=== PATIENT | male | born 1955 | race Caucasian/White ===

== ENCOUNTER 2022-02-23 11:05 | Outpatient (CLI) | payer MEDICARE, OTHER | END 2022-02-23 11:06 | disposition home or self-care (01) | LOC: MADEKG 11:05 | PROVIDERS: ATTEND Internal Medicine | DX: I10 Essential (primary) hypertension (principal) | CPT/HCPCS: 93005; 93010 ==

== ENCOUNTER 2024-12-11 09:25 | Emergency (ER) | payer MEDICARE, OTHER ==
[2024-12-11] MEDS ORDERED: Acetaminophen 500 MG TAB ONE (09:48)
[2024-12-11 10:14] LABS: #Basophils 0.1 thou/uL (0.0-0.2); #Eosinophils 0.2 thou/uL (0.0-0.7); #Lymphocytes 1.9 thou/uL (1.20-3.40); #Monocytes 0.7 thou/uL (0.11-0.59); #Neutrophils 4.6 thou/uL (1.40-6.50); %Basophils 1.7 % (0.0-1.0); %Eosinophils 2.6 % (0.0-10.0); %Lymphocytes 25.0 % (21.0-51.0); %Monocytes 9.5 % (0.0-10.0); %Neutrophils 61.1 % (42.0-75.0); Hematocrit 43.6 % (42.0-52.0); Hemoglobin 13.9 g/dL (14.0-18.0); Mean Corpuscular Hemoglobin 27.3 pg (27.0-31.0); Mean Corpuscular Volume 85.6 fl (78.0-98.0); Platelet Count 243 10x3/uL (130-400); Red Blood Cell (RBC) Count 5.09 mill/uL (4.70-6.10); White Blood Cell (WBC) Count 7.4 10x3/uL (4.8-10.8)
[2024-12-11 10:22] LABS: Glucose, Urine (Dipstick) Negative (Negative); Leukocyte Negative (Negative); Protein, Urine (Dipstick) Trace mg/dL (Neg-Trace); Specific Gravity, Urine 1.020 (1.005-1.030)
[2024-12-11 10:27] LABS: ALT (SGPT) 19 U/L (Less than 45); AST (SGOT) 18 U/L (11-34); Albumin 4.1 g/dL (3.1-4.5); Alkaline Phosphatase 87 U/L (40-110); Anion Gap 14 mmol/L (10-20); BUN (Urea Nitrogen) 13 mg/dL (8.4-25.7); Bilirubin, Total 0.4 mg/dL (0.3-1.2); Calc. Creatinine Clearance 0 mL/min (70-130); Calcium 9.1 mg/dL (7.8-10.44); Carbon Dioxide 22 mmol/L (23-31); Chloride 108 mmol/L (98-107); Globulin 3.2 g/dL (2.4-3.5); Glucose 106 mg/dL (80-115); Potassium 3.8 mmol/L (3.5-5.1); Sodium 140 mmol/L (136-145)
[2024-12-11 10:29] LABS: Troponin I 0.020 ng/mL (< 0.028)
[2024-12-11 10:31] LABS: CAUTI Indications for Culture Dysuria,urgency,freq; RBC/HPF 0-3 HPF (0-3); WBC/HPF 0-3 HPF (0-3)
[2024-12-11 10:32] LABS: Bacteria/HPF 2+ HPF (None Seen); Cocaine Metabolite Screen Negative (Negative); THC/Cannabinoid Screen Negative (Negative); Tricyclic Screen Negative (Negative)
[2024-12-11 10:33] LABS: Urine Culture Reflex No No
[2024-12-11] MEDS ORDERED: Lisinopril 10 MG TAB ONE (10:38)
[2024-12-11] MEDS ORDERED: Heparin 10,000 UNITS/ 10 ML VIAL ONE (10:51)
[2024-12-11] MEDS ORDERED: Aspirin Chewable 81 MG TAB ONE (10:51)
[2024-12-11] MEDS ORDERED: Nitroglycerin 50 MG/250 ML BOT 250 ML ONE (11:25)
== END 2024-12-11 11:40 | disposition short-term general hospital (02) ==
LOC: MADERS 09:25
DX: I21.19 ST elevation (STEMI) myocardial infarction involving other coronary artery of inferior wall (principal); M54.6 Pain in thoracic spine; I10 Essential (primary) hypertension
CPT/HCPCS: 71045; 80053; 80306; 81001; 83880; 84484; 85025; 93005; 94760; 96365; 96375; 99285; C1753; C1769 ×2; C1874; C1887 ×3; C1984; J1644 ×2; J7030; C1894